=== PATIENT | male | born 1975 | race Caucasian/White ===

== ENCOUNTER 2018-06-05 01:05 | Emergency (ER) | payer MEDICAID, OTHER ==
[~2018-06-05] VITALS: Ht 172.7 cm; Wt 83.2 kg
[2018-06-05 01:10] VITALS: Ht 172.7 cm; Wt 83.2 kg
[2018-06-05] MEDS ORDERED: SOD CHLORIDE 0.9% 500 ML IV STA (02:32)
[2018-06-05] MEDS ORDERED: LORAZEPAM 2 MG INJ IV ONE (03:00)
--- NOTE | 2018-06-05 04:44 | ERD ---
ER Documentation Chief Complaint Chief Complaint states having alcohol withdrawal, c/o shakes HPI This is a 43-year-old male is states he is having alcohol withdrawal complaints of the shakes. He says his last drink was 6 hours ago. Denies any suicidal homicidal ideation. Denies auditory or visual hallucinations. Denies any other current issues. ROS All systems reviewed and are negative except as per history of present illness. Allergies Allergies: Coded Allergies: No Known Drug Allergies (Verified Allergy, Unknown, 06/05/18) PMhx/Soc History of Surgery: Yes (right leg) Anesthesia Reaction: No Hx Neurological Disorder: No Hx Respiratory Disorders: No Hx Cardiac Disorders: Yes (htn) Hx Psychiatric Problems: No Hx Miscellaneous Medical Probl: No Hx Alcohol Use: Yes Hx Substance Use: No Hx Tobacco Use: No Smoking Status: Never smoker Physical Exam Vitals Vital Signs Date Temp Pulse Resp B/P (MAP) Pulse Ox O2 O2 Flow FiO2 Time Delivery Rate 06/05/18 98.7 117 18 176/100 96 01:10 (125) Physical Exam Const: No acute distress Head: Atraumatic Eyes: Normal Conjunctiva ENT: Normal External Ears, Nose and Mouth. Neck: Full range of motion. No meningismus. Resp: Clear to auscultation bilaterally Cardio: Regular rate and rhythm, no murmurs Abd: Soft, non tender, non distended. Normal bowel sounds Skin: No petechiae or rashes Back: No midline or flank tenderness Ext: No cyanosis, or edema Neur: Awake and alert Psych: Normal Mood and Affect Result Diagram: 06/05/18 0259 06/05/18 0259 Results 24 hrs Laboratory Tests Test 06/05/18 02:59 White Blood Count 3.4 10^3/ul Red Blood Count 4.56 10^6/ul Hemoglobin 13.8 g/dl Hematocrit 40.5 % Mean Corpuscular Volume 88.8 fl Mean Corpuscular Hemoglobin 30.3 pg Mean Corpuscular Hemoglobin Concent 34.1 g/dl Red Cell Distribution Width 14.1 % Platelet Count 106 10^3/UL Mean Platelet Volume 9.4 fl Immature Granulocytes % 0.300 % Neutrophils % 60.0 % Lymphocytes % 18.8 % Monocytes % 19.7 % Eosinophils % 0.3 % Basophils % 0.9 % Nucleated Red Blood Cells % 0.0 /100WBC Immature Granulocytes # 0.010 10^3/ul Neutrophils # 2.0 10^3/ul Lymphocytes # 0.6 10^3/ul Monocytes # 0.7 10^3/ul Eosinophils # 0.0 10^3/ul Basophils # 0.0 10^3/ul Nucleated Red Blood Cells # 0.0 10^3/ul Sodium Level 144 mmol/L Potassium Level 4.1 mmol/L Chloride Level 99 mmol/L Carbon Dioxide Level 24 mmol/L Anion Gap 21 Blood Urea Nitrogen 9 mg/dl Creatinine 0.65 mg/dl Est Glomerular Filtrat Rate mL/min > 60 mL/min Glucose Level 125 mg/dl Calcium Level 9.6 mg/dl Total Bilirubin 0.2 mg/dl Direct Bilirubin 0.00 mg/dl Indirect Bilirubin 0.2 mg/dl Aspartate Amino Transf (AST/SGOT) 407 IU/L Alanine Aminotransferase (ALT/SGPT) 134 IU/L Alkaline Phosphatase 162 IU/L Total Protein 9.8 g/dl Albumin 5.3 g/dl Globulin 4.50 g/dl Albumin/Globulin Ratio 1.17 Lipase 334 U/L Current Medications Medications Dose Sig/Wallace Start Time Status Last (Trade) Ordered Route PRN Stop Time Admin Dose Reason Admin Sodium 500 ml @ Q1H STAT 06/05/18 DC 06/05/18 Chloride 500 mls/hr IV 02:32 06/05/18 02:48 03:31 Lorazepam 2 mg ONCE ONCE 06/05/18 DC 06/05/18 (Ativan) IV 03:00 06/05/18 02:48 03:01 Procedures/MDM Emergency department course: Patient seen and evaluatedin bed family evaluation. A stat EKG. 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 Given normal saline fluid bolus. Given Ativan intravenously. Serial exams are stable. Heart rate stabilized. EKG: Rate/Rhythm: Sinus tachycardia at 116 bpm QRS, ST, T-waves: [No changes consistent w/ acute ischemia] Impression: [No evidence of ischemia or arrhythmia] Medical decision makin-year-old male here with acute alcohol withdrawal. No sign of delirium tremens. Stable for outpatient management. Advised to seek outpatient treatment center options. Departure Diagnosis: Primary Impression: Alcohol withdrawal syndrome Complication of substance-induced condition: uncomplicated Qualified Codes: F10.230 - Alcohol dependence with withdrawal, uncomplicated Condition: Stable GIOVANA HIDALGO Jun 05, 2018 04:44
[2018-06-05] MEDS ORDERED: CHLO25CA9 PO (04:45)
[2018-06-05 06:00] VITALS: BP 127/90; PULSE 98; RESP 22
== END 2018-06-05 06:01 | disposition home or self-care (01) ==
LOC: E/R 01:05
DX: F10.230 Alcohol dependence with withdrawal, uncomplicated (principal); R00.0 Tachycardia, unspecified; I10 Essential (primary) hypertension
CPT/HCPCS: 36415; 80053; 83690; 85025; 96361; 96374; J2060; J7040; Z7502

== ENCOUNTER 2018-08-20 19:25 | Emergency (ER) | payer MEDICAID ==
[~2018-08-20] VITALS: Ht 170.2 cm; Wt 82.1 kg
[~2018-08-20 19:25] MED LIST: CHLO25CA9 PO
[2018-08-20 19:28] VITALS: Ht 170.2 cm; Wt 82.1 kg
[2018-08-20] MEDS ORDERED: SOD CHLORIDE 0.9% 1,000 ML IV STA (21:27)
[2018-08-20] MEDS ORDERED: LORAZEPAM 2 MG INJ IV ONE ×2 (21:30→23:00)
--- NOTE | 2018-08-20 23:41 | ERD ---
ER Documentation Chief Complaint Chief Complaint ETOH WITHDRAWL/ HEAVY DAILY DRINKING X'S 1 MONTH; STOPPED TODAY HPI Is a very pleasant 43-year-old male comes in with complaints of alcohol withdrawal. He says he is drinking heavily for a month and he stopped drinking yesterday. Is been greater than 12 hours his last drink. He feels very shaky. Denies auditory visual hallucinations. Denies suicidal homicidal ideation. ROS All systems reviewed and are negative except as per history of present illness. Medications Home Meds Active Scripts Chlordiazepoxide* (Chlordiazepoxide*) 25 Mg Capsule, 25 MG PO Q8 PRN for CONTROL WITHDRAWAL SYMPTOMS, #10 CAP Prov:GIOVANA HIDALGO 06/05/18 Allergies Allergies: Coded Allergies: No Known Drug Allergies (Verified Allergy, Unknown, 06/05/18) PMhx/Soc History of Surgery: Yes (right leg) Anesthesia Reaction: No Hx Neurological Disorder: No Hx Respiratory Disorders: No Hx Cardiac Disorders: Yes (htn) Hx Psychiatric Problems: No Hx Miscellaneous Medical Probl: No Hx Alcohol Use: Yes Hx Substance Use: No Hx Tobacco Use: No Smoking Status: Never smoker Physical Exam Vitals Vital Signs Date Temp Pulse Resp B/P (MAP) Pulse Ox O2 O2 Flow FiO2 Time Delivery Rate 08/20/18 97.8 110 22 151/90 97 Room Air 21:26 (110) 08/20/18 97.8 122 22 164/110 97 19:28 (128) Physical Exam Const: No acute distress Head: Atraumatic Eyes: Normal Conjunctiva ENT: Normal External Ears, Nose and Mouth. Neck: Full range of motion. No meningismus. Resp: Clear to auscultation bilaterally Cardio: Regular rate and rhythm, no murmurs Abd: Soft, non tender, non distended. Normal bowel sounds Skin: No petechiae or rashes Back: No midline or flank tenderness Ext: No cyanosis, or edema Neur: Awake and alert Psych: Normal Mood and Affect Result Diagram: [id number]/20/18214108/[id number]/182141 Results 24 hrs Laboratory Tests Test 08/20/18 21:42 White Blood Count 6.8 10^3/ul Red Blood Count 4.79 10^6/ul Hemoglobin 14.7 g/dl Hematocrit 42.2 % Mean Corpuscular Volume 88.1 fl Mean Corpuscular Hemoglobin 30.7 pg Mean Corpuscular Hemoglobin Concent 34.8 g/dl Red Cell Distribution Width 11.9 % Platelet Count 258 10^3/UL Mean Platelet Volume 9.1 fl Immature Granulocytes % 0.100 % Neutrophils % 52.0 % Lymphocytes % 40.6 % Monocytes % 4.3 % Eosinophils % 1.8 % Basophils % 1.2 % Nucleated Red Blood Cells % 0.0 /100WBC Immature Granulocytes # 0.010 10^3/ul Neutrophils # 3.6 10^3/ul Lymphocytes # 2.8 10^3/ul Monocytes # 0.3 10^3/ul Eosinophils # 0.1 10^3/ul Basophils # 0.1 10^3/ul Nucleated Red Blood Cells # 0.0 10^3/ul Urine Color YELLOW Urine Clarity CLEAR Urine pH 6.0 Urine Specific [place] 1.015 Urine Ketones NEGATIVE mg/dL Urine Nitrite NEGATIVE mg/dL Urine Bilirubin NEGATIVE mg/dL Urine Urobilinogen 1+ mg/dL Urine Leukocyte Esterase NEGATIVE Thanh/ul Urine Hemoglobin NEGATIVE mg/dL Urine Glucose NEGATIVE mg/dL Urine Total Protein NEGATIVE mg/dl Sodium Level 143 mmol/L Potassium Level 4.2 mmol/L Chloride Level 102 mmol/L Carbon Dioxide Level 25 mmol/L Anion Gap 16 Blood Urea Nitrogen 9 mg/dl Creatinine 0.69 mg/dl Est Glomerular Filtrat Rate mL/min > 60 mL/min Glucose Level 119 mg/dl Calcium Level 8.9 mg/dl Total Bilirubin 0.4 mg/dl Direct Bilirubin 0.00 mg/dl Indirect Bilirubin 0.4 mg/dl Aspartate Amino Transf (AST/SGOT) 67 IU/L Alanine Aminotransferase (ALT/SGPT) 37 IU/L Alkaline Phosphatase 136 IU/L Total Protein 9.1 g/dl Albumin 4.7 g/dl Globulin 4.40 g/dl Albumin/Globulin Ratio 1.06 Salicylates Level < 1.0 mg/dl Acetaminophen Level < 10.0 ug/ml Ethyl Alcohol Level 245.0 mg/dl Current Medications Medications Dose Sig/Wallace Start Time Status Last (Trade) Ordered Route PRN Stop Time Admin Dose Reason Admin Sodium 1,000 ml @ Q1H STAT 08/20/18 DC 08/20/18 Chloride 1,000 mls/hr IV 21:27 21:53 08/20/18 22:26 Lorazepam 2 mg ONCE ONCE 08/20/18 DC 08/20/18 (Ativan) IV 21:30 21:55 08/20/18 21:49 Lorazepam 2 mg ONCE ONCE 08/20/18 DC 08/20/18 (Ativan) IV 23:00 23:13 08/20/18 23:01 Procedures/MDM Emergency department course: Patient seen and 9. Given fluid bolus. Given Ativan approximately 4 mg of his ER stay. Patient felt much better. Clinically stable. No fasciculations noted. Medical decision making: This is a 43-year-old male who comes in with acute alcohol withdrawal. At this point is clinically stable. Will be discharged ho in with Ativan prescription Departure Diagnosis: Primary Impression: Alcohol withdrawal syndrome Complication of substance-induced condition: with unspecified complication Qualified Codes: F10.239 - Alcohol dependence with withdrawal, unspecified Condition: Stable GIVOANA HIDALGO August 20, 2018 23:41
[2018-08-20] MEDS ORDERED: CHLO25CA9 PO (23:42)
[2018-08-20] MEDS ORDERED: LORA1TAB PO (23:42)
[2018-08-21 00:15] VITALS: BP 148/87; PULSE 96; RESP 18
== END 2018-08-21 00:36 | disposition home or self-care (01) ==
LOC: E/R 19:25
DX: F10.239 Alcohol dependence with withdrawal, unspecified (principal); I10 Essential (primary) hypertension
CPT/HCPCS: 80053; 80307; 81003; 85025; 96374; 96376; J2060; J7030; Z7502